=== PATIENT | male | born 1935 | race Caucasian/White ===

== ENCOUNTER 2021-08-06 21:36 | Emergency (ER) | payer OTHER ==
[~2021-08-06] VITALS: Ht 180.3 cm; Wt 84.8 kg
[2021-08-06 21:42] VITALS: BP_SYST 128
[2021-08-06 22:15] VITALS: BP_SYST 140
== END 2021-08-06 22:14 | disposition home or self-care (01) ==
LOC: SED 21:36
DX: M79.652 Pain in left thigh (principal); K40.90 Unilateral inguinal hernia, without obstruction or gangrene, not specified as recurrent; I10 Essential (primary) hypertension
CPT/HCPCS: 99281